=== PATIENT | female | born 1950 | race Caucasian/White ===

== ENCOUNTER 2018-05-23 11:27 | Inpatient (IN) ==
[2018-05-23 12:24] LABS: URINE SOURCE CLEAN CATCH
[2018-05-23 12:35] LABS: BASO# 0.01 X1000 (0.0-0.2); BASO% 0.2 % (0.0-0.8); EOS# 0.02 X1000 (0.0-0.7); EOS% 0.3 % (0.0-10.0); HEMATOCRIT 46.1 % (37.0-47.0); HEMOGLOBIN 14.1 g/dL (12.0-16.0); LYMPH# 0.92 X1000 (1.2-3.4); LYMPH% 14.4 % (20.5-51.1); MCH 26.9 PG (27-31); MCHC 30.6 g/dL (33-37); MCV 87.8 FL (81-99); MONO# 0.71 X1000 (0.11-0.59); MONO% 11.1 % (1.7-9.3); MPV 11.7 FL (7.4-10.4); NEUT# 4.75 X1000 (1.4-6.5); PLT 126 X1000 (130-400); RBC 5.25 XMIL (4.2-5.4); RDW 14.7 % (11.5-14.5); WBC 6.41 X1000 (4.8-10.8)
[2018-05-23 12:35] LABS: BILIRUBIN URINE SMALL (NEGATIVE); BLOOD URINE TRACE (NEGATIVE); COLOR YELLOW; GLUCOSE URINE NEGATIVE (NEGATIVE); KETONE URINE NEGATIVE (NEGATIVE); LEUKOCYTES URINE SMALL (NEGATIVE); NITRITE URINE NEGATIVE (NEGATIVE); PH URINE 6.5; PROTEIN URINE 70 mg/dL (NEGATIVE); SP GRAVITY URINE 1.025; TURBIDITY URINE CLEAR (CLEAR); UROBILINOGEN URINE 8 mg/dL (NORMAL)
[2018-05-23 12:37] LABS: UR EPITHELIAL CELLS <10 /HPF (<10); URINE BACTERIA 1+ /HPF; URINE RBC <10 /HPF (<10); URINE WBC <10 /HPF (<10)
[2018-05-23 12:39] LABS: INR 0.88; PROTIME 12.6 Seconds (11.0-16.0)
[2018-05-23 12:40] LABS: PTT 30.6 Seconds (22.3-41.8)
--- NOTE | 2018-05-23 12:43 | Diag Imaging Result Doc PS360 ---
EXAM: CHEST-PORTABLE INDICATION: weakness TECHNIQUE: One view COMPARISON: None. FINDINGS: There is mild interstitial thickening bilaterally, which could be chronic related to mild fibrotic change. Otherwise, the lungs are grossly clear. There is no discrete pleural fluid collection or pneumothorax. The cardiomediastinal silhouette and central vasculature are grossly unremarkable. IMPRESSION: Very mild interstitial thickening as described. Electronically signed by Titus Sandoval 05/23/2018 12:41 PM
[2018-05-23 13:14] LABS: ALB/GLOB RATIO 0.8; ALBUMIN 3.5 g/dL (3.5-5.0); CALCIUM 9.2 mg/dL (8.8-10.2); MAGNESIUM 2.1 mg/dL (1.5-2.7); TOTAL BILIRUBIN 0.86 mg/dL (0.20-1.00)
[2018-05-23] MEDS ORDERED: NS 1,000 ML IV ONE (13:33)
[2018-05-23 13:44] LABS: CK INDEX 0.2 (0.0-2.5); CK-MB 4.36 ng/mL (0.0-5.0)
--- NOTE | 2018-05-23 15:02 | Diag Imaging Result Doc PS360 ---
EXAM: CT ABD/PELVIS W/IV CONT ONLY INDICATION: abdominal pain TECHNIQUE: This exam was performed using automated exposure control, adjustment of mA or kV according to patient size, and/or use of iterative reconstruction technique. COMPARISON: None. FINDINGS: There is mild subsegmental atelectasis at the lung bases. The liver, gallbladder, spleen, pancreas, and adrenal glands are essentially unremarkable. The kidneys and urinary bladder are unremarkable. There is a 2.7 cm left ovarian cyst. There is a 1.3 cm right ovarian cyst. The appendix is normal. There is advanced sigmoid colonic diverticulosis but no evidence of diverticulitis. The remainder of the GI tract is grossly unremarkable. There are multiple compression deformities involving the lower thoracic and the lumbar spine that are probably chronic. There has been prior vertebroplasty at T12. IMPRESSION: 1.Advanced diverticulosis coli but no evidence of diverticulitis. 2.Bilateral ovarian cysts with the largest cyst on the left measuring up to 2.7 cm. 3.Other external/nonacute findings detailed above. Electronically signed by Titus Sandoval 05/23/2018 3:00 PM
--- NOTE | 2018-05-23 15:56 | PROVIDER DOCUMENTATION ---
This chart was entered by Leonila Cee Scribe, acting as scribe for Shukri Lomas MD. HPI-General Adult - General Chief Complaint: Weakness Stated Complaint: WEAKNESS Time Seen by Provider: 05/23/18 11:51 Source: patient, family - History of Present Illness -Gen Adult Nature of Presenting Problems: 67 yof presents to the e with family at bedside and family sts has noticed pt has became weaker the last 4 days and are not handling her ADL's as well as before. pt on exam is ill appearing Location of Pain/Injury: reports: generalized (weakness) Quality of Pain: reports: aching Severity: reports: moderate Onset/Duration: reports: 4 days ago Timing: reports: still present, getting worse Context/Activities at Onset: reports: light activity Modifying Factors: improves with: nothing Associated Symptoms: reports: fatigue, malaise, weakness, trouble walking. denies: chest pain, cough, diarrhea, fever/chills, nausea, vomiting Similar Symptoms Previously?: No Recently seen or treated by another doctor?: No Review of Systems - Adult - REVIEW OF SYSTEMS - ADULT Constitutional: reports: fatique. denies: chills, fever Eyes: reports: no symptoms reported Ears, Nose, Mouth & Throat: reports: no symptoms reported Cardiovascular: denies: chest pain, palpitations Respiratory: denies: shortness of breath, wheezing Gastrointestinal: reports: poor appetite. denies: abdominal pain, diarrhea, nausea, vomiting Genitourinary: reports: no symptoms reported Musculoskeletal: reports: muscle weakness. denies: back pain, neck pain Integumentary: reports: no symptoms reported Neurological: reports: tremors. denies: ataxia, dizziness/vertigo, headache/ migraines, seizure, slurred speech, syncope Psychiatric: reports: no symptoms reported Endocrine: reports: no symptoms reported Hematologic/Lymphatic: reports: no symptoms reported Allergic/Immunologic: reports: no symptoms reported All Other Systems: Reviewed and Negative Past History - Adult - PAST MEDICAL HISTORY-ADULT Review of Records: reports: Old Records Reviewed, Nursing Assessment Review, Medications Reviewed, Social history reviewed & non-contributory. Major Childhood Illnesses: reports: denies history Cardiovascular: reports: HTN, hyperlipidemia Respiratory: reports: COPD Gastrointestinal: reports: denies history Obstetrical/Gynecological: reports: denies history Genitourinary: reports: denies history Musculoskeletal: reports: denies history Neurological: reports: denies history Psychiatric: reports: denies history Endocrine/Immune: reports: thyroid disorder Other Conditions: reports: denies history - PRIOR SURGERIES/PROCEDURES Surgical/Procedure History: reports: back/neck - IMMUNIZATION STATUS Childhood Immunizations: See Nurse Assessment Flu Vaccine: See Nurse Assessment - FAMILY HISTORY Family History: reviewed, not pertinent - SOCIAL HISTORY Smoking: cigarettes, less than 1 pack/day Provider spent 3-5 mins advising pt. on dangers of tobacco.: Discussed manners to quit use, and f/u contacts for add'l counseling. Substance Use: denies Alcohol Use Frequency: never Living Situation: family Physical Exam-General - PHYSICAL EXAM-ADULT Initial Vital Signs Reviewed: Yes - CONSTITUTIONAL General Appearance: moderate distress, thin, other (she looks chronically ill). negative: appears well - EYES Eyes: PERRL/EOMI - HEAD, EARS, NOSE, MOUTH & THROAT HENMT: moist mucous membranes - NECK Neck: non-tender, full range of motion, supple, normal inspection - RESPIRATORY Respiratory: chest non-tender, decreased breath sounds. negative: crackles, rales, rhonchi - CARDIOVASCULAR Cardiovascular: normal peripheral pulses, tachycardia (130) - GASTROINTESTINAL (ABDOMEN) Abdominal Exam: normal bowel sounds, soft, tenderness (generalized). negative: distended, guarding, rigid, rebound - LYMPHATIC Lymphatic: no adenopathy - MUSCULOSKELETAL Back Exam: normal inspection, no CVA tenderness, no vertebral tenderness Extremity: normal range of motion, no pedal edema, no calf tenderness, normal capillary refill, pelvis stable. negative: normal gait - SKIN Integumentary: normal color, normal turgor, warm/dry - NEUROLOGIC Neurologic: grossly normal, no motor/sensory deficits, other (intention tremors in left upper extremity) - PSYCHIATRIC Psych/Mental Status: oriented x 3 Progress - PLAN OF CARE/RESULTS Progress/Plan/Lab Results: Vital Signs - 8 hr 05/23/18 11:29 Temperature 98.3 F Pulse Rate 130 H Respiratory Rate 20 Blood Pressure 103/76 O2 Sat by Pulse Oximetry 91 L Orders Category Date Time Status CHEST-PORTABLE [RAD] Stat Exams 05/23/18 12:06 Ordered CBC WITH ELECTRONIC DIFF [HEME] Stat Lab 05/23/18 12:06 Uncollected CK PROFILE [SP CHEM] Stat Lab 05/23/18 12:06 Uncollected COMPREHENSIVE METABOLIC PANEL [CHEM] Stat Lab 05/23/18 12:06 Uncollected MAGNESIUM [CHEM] Stat Lab 05/23/18 12:06 Uncollected PRO B-NATRIURETIC PEPTIDE Stat Lab 05/23/18 12:06 Uncollected PT [PROTIME WITH INR] [COAG] Stat Lab 05/23/18 12:06 Uncollected PTT [COAG] Stat Lab 05/23/18 12:06 Uncollected TROPONIN T Stat Lab 05/23/18 12:06 Uncollected URINALYSIS W/POSS RFLX CULT [URINALYSIS] Stat Lab 05/23/18 12:06 Uncollected EKG [EKG] Stat Ther 05/23/18 12:05 Ordered Result Diagrams: 05/23/18 11:50 05/23/18 11:50 - REASSESSMENT Reassessment #1 Time Reassessed: 13:20 Status: improving Reassessment Comment: pt is resting in bed - EKG 1 Time of EKG reading by physician:: 11:44 EKG Read and Signed by:: Jonathan Barajas EKG Interpretation (*Must complete 3 of following elements*): Abnormal Rate: 123 Rhythm: sinus [place]: normal QRS: other (low voltage QRS) ID Interval: normal ST Wave: normal Comments: possible inferior infarct, age undetermined - XRAY 1 XRAY: Bilateral XRAY Study: Chest (EXAM: CHEST-PORTABLE INDICATION: weakness TECHNIQUE: One view COMPARISON: None. FINDINGS: There is mild interstitial thickening bilaterally, which could be chronic related to mild fibrotic change. Otherwise, the lungs are grossly clear. There is no discrete pleural fluid collection or pneumothorax. The cardiomediastinal silhouette and central vasculature are grossly unremarkable. IMPRESSION: Very mild interstitial thickening as described. Electronically signed by Titus Sandoval 05/23/2018 12:41 PM 1241 Interpreting Physician: Titus Sandoval MD Dictated Date/Time: 06/10 1238 cc: Shukri Lomas MD; Arya Simpson MD) - CT/MRI 1 CT Study: Abdomen, Pelvis Impression: Abnormal ( EXAM: CT ABD/PELVIS W/IV CONT ONLY INDICATION: abdominal pain TECHNIQUE: This exam was performed using automated exposure control, adjustment of mA or kV according to patient size, and/or use of iterative reconstruction technique. COMPARISON: None. FINDINGS: There is mild subsegmental atelectasis at the lung bases. The liver, gallbladder, spleen , pancreas, and adrenal glands are essentially unremarkable. The kidneys and urinary bladder are unremarkable. There is a 2.7 cm left ovarian cyst. There is a 1.3 cm right ovarian cyst. The appendix is normal. There is advanced sigmoid colonic diverticulosis but no evidence of diverticulitis. The remainder of the GI tract is grossly unremarkable. There are multiple compression deformities involving the lower thoracic and the lumbar spine that are probably chronic. There has been prior vertebroplasty at T12. IMPRESSION: 1.Advanced diverticulosis coli but no evidence of diverticulitis. 2.Bilateral ovarian cysts with the largest cyst on the left measuring up to 2.7 cm. 3.Other external /nonacute findings detailed above. Electronically signed by Titus Sandoval 2018 3:00 PM 05/23/18 1500 Interpreting Physician: Titus Sandoval MD Dictated Date/Time: 05/23/18 4198) - CONSULTS/PCP/HOSPITALIST Notification #1 *Consult/PCP/Hospitalist*: Dr. Wright/GLENN Melo Time Discussed: 15:54 Consult Disposition: Admit Departure - Departure Date of Disposition Decision: 05/23/18 Time of Disposition Decision: 15:55 DIAGNOSIS: Tobacco use disorder, Weakness Ovarian cyst Qualifiers: Laterality: bilateral Qualified Code(s): N83.201 - Unspecified ovarian cyst, right side; N83.202 - Unspecified ovarian cyst, left side Rhabdomyolysis Qualifiers: Rhabdomyolysis type: non-traumatic Qualified Code(s): M62.82 - Rhabdomyolysis Disposition: ADMITTED INPATIENT 09 Certified Medical Emergency: Emergent Condition: Fair Referrals and Follow-Ups: Arya Simpson MD [Primary Care Provider] - - Critical Care Note This patient required my direct & personal management of CC.: No Attestation - Physician/ TALITA Attestation Patient care was provided by Advanced Practice Provider:: No The physician spent face to face time with patient:: Yes Advanced Practice Provider documentation review:: Supervising physician onsite and consulted in the evaluation and care of this patient. The physician did have a face to face encounter with the patient. This chart was documented by the indicated scribe, (Leonila Cee Scribe) and accurately reflects the services I performed and decisions made by me, Shukri Lomas MD, as attested by the provider's signature.
[2018-05-23] MEDS ORDERED: DUONEB (A & A) INH PRN (17:34)
--- NOTE | 2018-05-23 18:33 | HISTORY AND PHYSICAL ---
ADDENDUM: I agree with components of history, physical, assessment and plan. In brief Ms. Washington is 67-year-old lady with past history of tobacco abuse, essential tremor, hyperlipidemia, hypothyroidism who comes in with 3-day history of physical deconditioning, decreased p.o. intake, inability to come out of bed. On arrival she is found to be tachycardic with volume depletion, kidney dysfunction, transaminitis and suspected rhabdomyolysis. I saw the patient in the emergency room. She denies any complaints. She does have bilateral upper extremity tremors at rest. Vitals examination reveals tachycardia normotension. Physical examination she had bilateral wheezing and no lower extremity edema. Labs as mentioned above had kidney dysfunction and transaminase. ASSESSMENT AND PLAN: Likely physical deconditioning due to what appears to me chronic debility as given at baseline she uses walker to walk inside the house has bilateral essential tremor and rigidity on muscular exam. We will admit her for intravenous fluid resuscitation and evaluation of transaminitis. I will get repeat EKG tomorrow morning, will get CT head to rule out any acute cerebrovascular accident. Plan of care was discussed with patient and granddaughter at bedside who is a surrogate decision maker, apparently patient has not been in contact with any of her children. cc: Zack Wright MD MTDD
--- NOTE | 2018-05-23 18:44 | Diag Imaging Result Doc PS360 ---
EXAM: CT HEAD W/O CONTRAST INDICATION: ams TECHNIQUE: This exam was performed using automated exposure control, adjustment of mA or kV according to patient size, and/or use of iterative reconstruction technique. COMPARISON: None. FINDINGS: There is patchy low attenuation in the periventricular and subcortical white matter suggesting moderate to advanced microangiopathy. There is no definite acute infarct given the limited sensitivity of CT versus MRI. There is no discrete intracranial mass, mass effect, or intracranial hemorrhage. The surrounding soft tissues and bony structures are essentially unremarkable. IMPRESSION: Chronic appearing white matter changes as described. No definite acute intracranial pathology. Electronically signed by Titus Sandoval 05/23/2018 6:41 PM
[2018-05-23 18:55] LABS: UR AMPHETAMINES QUAL NONE DETECTED (NONE DETECT); UR BARBITUATES QUAL PRESUMPTIVE POSITIVE (NONE DETECT); UR BENZODIAZEPIN QUAL PRESUMPTIVE POSITIVE (NONE DETECT); UR CANNABINOIDS QUAL NONE DETECTED (NONE DETECT); UR COCAINE QUAL NONE DETECTED (NONE DETECT); UR METHADONE QUAL NONE DETECTED (NONE DETECT); UR OPIATES QUAL PRESUMPTIVE POSITIVE (NONE DETECT); UR OXYCODONE QUAL NONE DETECTED (NONE DETECT); UR PCP QUAL NONE DETECTED (NONE DETECT)
--- NOTE | 2018-05-23 19:04 | HISTORY AND PHYSICAL ---
PRIMARY CARE PHYSICIAN: Dr. Arya Simpson. CHIEF COMPLAINT: Weakness. HISTORY OF PRESENT ILLNESS: Mrs. Washington is a 67-year-old female with a history of COPD, nicotine dependence, chronic pain, anxiety, tremor, hyperlipidemia, and hypothyroidism who presents with abrupt onset of weakness. The patient is a poor history. Granddaughter and her boyfriend at the bedside are able to answer some questions. Some time on Tuesday, Mrs. Washington apparently slipped out of her bed onto the floor and was there for quite some time before she was found by her family and since that time she has been progressively weak, not getting up to walk, eat, or drink. There has not been any fever or cough with sputum production. No nausea or vomiting. However, she has been unable to really ambulate since Tuesday. She was brought here today for evaluation. In the ER she had labs done. Her chemistry was noted to show rhabdomyolysis with a CK of 2282 as well as transaminitis. Chest x-ray shows mild interstitial thickening. The abdomen and pelvis CT shows advanced diverticulosis, but no evidence of diverticulitis. The patient, herself, denies any real complaints, but she is clearly weak, somewhat lethargic, and confused. There are, however, no focal deficits noted. As such, she is going to be admitted for weakness, encephalopathy, transaminitis, as well as rhabdomyolysis. PAST MEDICAL HISTORY: 1. COPD. 2. Nicotine dependence. 3. Anxiety and depression. 4. Tremor. 5. Hypothyroidism. 6. Hyperlipidemia. 7. Chronic pain. PAST SURGICAL HISTORY: Kyphoplasty and carpal tunnel release on the right. SOCIAL HISTORY: She smokes three to five cigarettes a day. She is . She lives with her granddaughter occasionally, but most of the time lives alone. No drug use or alcohol use. REVIEW OF SYSTEMS: A limited 10-point review of systems was obtained and found to be negative with the exception of the HPI. HOME MEDICATIONS: Lipitor 20 mg daily, diazepam 5 mg b.i.d., Neurontin 300 mg p.o. daily, [place] b.i.d., Synthroid 100 mcg daily, Prednisone 5 mg b.i.d., primidone 100 mg b.i.d., sertraline 50 mg daily. ALLERGIES: No known drug allergies. PHYSICAL EXAMINATION: VITAL SIGNS: Blood pressure is 105/68, heart rate is 71, respiratory rate 10, O2 saturation is 98% on room air, temperature is 98.3. GENERAL: Chronically ill and disheveled 67-year-old female, lying in the hospital bed in no acute distress. NEUROLOGICAL: Clearly lethargic and confused but she does follow commands without focal deficits. HEENT: Head is atraumatic and normocephalic. Pupils are equal, round and reactive to light. Oral mucosa is dry. NECK: Trachea is midline. There is no JVD. CHEST: Diminished at the bases. Clear to auscultation bilaterally. CARDIOVASCULAR: Regular rate and rhythm. S1 and S2 is noted. No murmurs. GASTROINTESTINAL: Soft. Nondistended. Nontender. Bowel sounds are hypoactive. EXTREMITIES: Without edema. Pulses 1+ bilaterally. DIAGNOSTIC DATA: Chest x-ray shows mild interstitial thickening. Abdomen and pelvis CT shows extensive diverticulosis, no diverticulitis. Thoracic and lumbar spine shows chronic changes with kyphoplasty changes, but nothing acute. WBC is 6.41, hemoglobin 14.1, hematocrit 46.1, platelet count 126. INR 0.88. Sodium 138, potassium 4, chloride 97, CO2 27, anion gap 14, BUN 21, creatinine 1, glucose 153, calcium 9.2, magnesium 2.1. Total bilirubin 0.86, AST 170, ALT 120, alkaline phosphatase 151. CK 2282. Troponin 0.018. proBNP 780. Albumin 3.5. TSH 0.05. T4 1.69. UA shows 1+ bacteria, small leukocytes and urobilinogen. ASSESSMENT AND PLAN: 1. Toxic metabolic encephalopathy: Unclear as to the baseline of the patient. It would seem that there are chronic cognitive issues, however we need to rule out anything acute. Will check a head CT, ammonia level, and B12 with folate. Drug screen, alcohol level, and acetaminophen level. Will also culture her urine, although she denies any dysuria. 2. Rhabdomyolysis: Likely multifactorial, to include dehydration and being on the ground for some time on Tuesday. Will continue to trend her CKs and hydrate. 3. Transaminitis: Unclear as to the etiology. Will stop the Lipitor. Check a hepatitis, alcohol, and acetaminophen level, as well as ammonia level as she is somewhat confused. 4. Volume depletion: Continue intravenous fluids. 5. Chronic obstructive pulmonary disease: She is not in exacerbation. Will add breathing treatments and pulmonary toilet. 6. Hypothyroidism: Continue her Synthroid. 7. Chronic pain: Will continue her [place], being cautious with her mental status. 8. Nicotine dependence: We have advised the patient to quit smoking. Will write a nicotine patch. 9. Deep venous thrombosis prophylaxis with sequential compression devices. Further recommendations to follow. Dictated by ZAY Guillaume for Zack Wright MD cc: ZAY Guillaume MD
[2018-05-23 19:48] LABS: ACETAMINOPHEN < 1.2 ug/mL (10-30); PREALBUMIN 10.7 mg/dL (20-40)
[2018-05-23] MEDS: NS 1,000 ML IV ONE ×2 (20:01→20:35)
[2018-05-23 20:03] LABS: CK INDEX 0.3 (0.0-2.5); CK-MB 4.68 ng/mL (0.0-5.0)
[2018-05-23 20:04] LABS: TSH 0.04 uIUmL (0.27-4.20)
[2018-05-23] MEDS: VALIUM PO SCH (20:35)
[2018-05-23] MEDS: NICODERM PATCH TD SCH (20:35)
[2018-05-24 01:23] LABS: CK INDEX 0.4 (0.0-2.5); CK-MB 4.67 ng/mL (0.0-5.0)
[2018-05-24] MEDS ORDERED: PNEUMOVAX 23 IM ONE (06:02)
[2018-05-24 06:17] LABS: BASO# 0.01 X1000 (0.0-0.2); BASO% 0.2 % (0.0-0.8); EOS# 0.16 X1000 (0.0-0.7); EOS% 2.9 % (0.0-10.0); HEMATOCRIT 39.3 % (37.0-47.0); HEMOGLOBIN 12.1 g/dL (12.0-16.0); LYMPH% 19.9 % (20.5-51.1); MCH 27.6 PG (27-31); MCHC 30.8 g/dL (33-37); MCV 89.5 FL (81-99); MONO# 0.99 X1000 (0.11-0.59); MONO% 17.9 % (1.7-9.3); MPV 12.1 FL (7.4-10.4); NEUT# 3.27 X1000 (1.4-6.5); NEUT% 59.1 % (42.2-75.2); PLT 119 X1000 (130-400); RBC 4.39 XMIL (4.2-5.4); RDW 14.7 % (11.5-14.5); WBC 5.53 X1000 (4.8-10.8)
[2018-05-24] MEDS: SYNTHROID PO SCH (06:17)
--- NOTE | 2018-05-24 07:12 | EKG Report ---
Test Performed on : 05/23/2018 11:43:46 AM Test Reason : weakness Blood Pressure : / mmHG Vent. Rate : 125 BPM Atrial Rate : 125 BPM P-R Int : 132 ms QRS Dur : 074 ms QT Int : 306 ms P-R-T Axes : 078 -09 069 degrees QTc Int : 441 ms Sinus tachycardia. with premature supraventricular complexes. Low voltage QRS Borderline ECG No previous ECGs available Unconfirmed Result
[2018-05-24 07:19] LABS: CK INDEX 0.5 (0.0-2.5); CK-MB 4.84 ng/mL (0.0-5.0)
--- NOTE | 2018-05-24 07:51 | EKG Report ---
Test Performed on : 05/24/2018 06:58:30 AM Test Reason : Follow up EKG Blood Pressure : / mmHG Vent. Rate : 108 BPM Atrial Rate : 108 BPM P-R Int : 138 ms QRS Dur : 072 ms QT Int : 310 ms P-R-T Axes : 058 001 055 degrees QTc Int : 415 ms Sinus tachycardia. with occasional premature ventricular complexes. Low voltage QRS Borderline ECG When compared with ECG of 23-MAY-2018 11:44, (Unconfirmed) Previous ECG has undetermined rhythm, needs review Moderate movement artifact present Confirmed by Rosy MANTILLA, Alberto Aburto ([id number]) on 05/24/2018 5:28:50 PM
[2018-05-24] MEDS: ZOLOFT PO SCH (08:38)
[2018-05-24] MEDS: VALIUM PO SCH ×3 (08:38→22:08)
[2018-05-24] MEDS: NICODERM PATCH TD SCH (08:38)
[2018-05-24 11:32] LABS: HEPATITIS PROFILE ACUTE SEE COMMENTS
[2018-05-24 14:29] LABS: AGAP 15; ALB/GLOB RATIO 0.9; ALKALINE PHOSPHATASE 121 U/L (32-104); BUN 15 mg/dL (8-22); CALCIUM 8.2 mg/dL (8.8-10.2); CHLORIDE 100 mmol/L (98-107); COSMO 278; CREATININE 0.6 mg/dL (0.5-0.9); ESTIMATED GFR > 60; GLUCOSE 85 mg/dL (70-104); GOT 120 U/L (10-30); GPT 94 U/L (10-36); POTASSIUM 3.6 mmol/L (3.5-5.1); SODIUM 139 mmol/L (136-145); TCO2 24 mmol/L (25-35); TOTAL PROTEIN 6.2 g/dL (6.3-8.3)
[2018-05-24] MEDS ORDERED: MELATONIN PO ONE (22:09)
[2018-05-24] MEDS: MYSOLINE PO SCH (22:35)
--- NOTE | 2018-05-25 00:28 | PROGRESS NOTE ---
DATE: 05/24/2018 Overnight, no acute events. SUBJECTIVE: She is feeling better today. She is denying any complaints at the moment. The patient's family friends at bedside, and plan of care has been discussed with them. The patient states she ate a little bit today. PHYSICAL EXAMINATION: Vital signs: She has been afebrile with temperature of 98.5 degrees, pulse 100 per minute, blood pressure 114/74, saturating 97% on nasal cannula. General: Does not appear in acute distress. Lungs: Air entry bilaterally equal. No wheeze, rhonchi, or crackles. Cardiovascular: S1, S2 normal. No murmur, rub, or gallop. Abdomen: Soft, nontender. Extremities: No lower extremity edema. Neurologic: Alert, oriented x3. Pupils equal, reactive to light bilaterally. No obvious facial droop. She is able to raise all upper extremities above ground level. LABORATORIES: Labs are suggestive of no leukocytosis, stable hemoglobin, hematocrit, and platelet count. Normal BMP. Improving transaminitis and improving creatine kinase. MICROBIOLOGY: Urine culture: No growth to date. However, the patient was not symptomatic, either. CT scan head did not detect an acute pathology. ASSESSMENT AND PLAN: 1. Toxic metabolic encephalopathy, likely because of volume depletion on arrival which has resolved, and the patient is currently at her baseline. A drug screen done did detect that she was positive for benzodiazepines and barbiturates. At home, she is listed to be taking diazepam and primidone which will give those results, respectively. 2. Rhabdomyolysis, likely related to her being bed-bound for more than 36 hours almost and decreasing physical activity, now improving after intravenous fluid resuscitation. CK is trending down. 3. Transaminitis, likely in the setting of rhabdomyolysis. I am holding her statin at the moment. The acetaminophen levels were unremarkable. Follow up liver function tests tomorrow. 4. Volume depletion, status post intravenous fluids. Continue to encourage p.o. intake. 5. History of chronic obstructive pulmonary disease, not in acute exacerbation. Continue albuterol-ipratropium as needed. 6. Hypothyroidism. Continue Synthroid. 7. Chronic pain. Continue p.r.n. [place] and stool softeners. 8. Nicotine dependence. The patient was advised to quit smoking and continue nicotine patch. 9. Deep venous thrombosis prophylaxis. Sequential compression devices. 10. History of anxiety and insomnia. Continue home diazepam to avoid withdrawal and sertraline. 11. Bilateral tremors. The patient has had family history of bilateral tremors. She is taking primidone. This could be secondary to essential tremors involving bilateral upper extremities as well as head. I will continue primidone. DISPOSITION: The patient remains inside the hospital. We will have Physical Therapy evaluate her. The patient's home situation is that she lives by herself. The only relative that she has currently is her granddaughter, who has moved out with her boyfriend, and the granddaughter is a surrogate decision maker. She appears very concerned about the patient's care, and on my evaluation, it appears that even if the patient goes to the rehab, considering her history of essential tremor and general decline, she may not be able to manage herself at home, so I have placed Social Work consult for long-term care facility placement, if possible. cc: Zack Wright MD
[2018-05-25] MEDS ORDERED: HALDOL IM ONE (06:27)
[2018-05-25] MEDS: SYNTHROID PO SCH (07:52)
[2018-05-25] MEDS: MYSOLINE PO SCH ×2 (08:26→23:38)
[2018-05-25] MEDS: ZOLOFT PO SCH (08:27)
[2018-05-25] MEDS: VALIUM PO SCH ×2 (08:27→23:38)
[2018-05-25] MEDS: NICODERM PATCH TD SCH (08:27)
[2018-05-25 12:16] LABS: AGAP 12; BUN 10 mg/dL (8-22); CALCIUM 8.7 mg/dL (8.8-10.2); CHLORIDE 101 mmol/L (98-107); CK TOTAL 378 U/L (24-173); COSMO 277; CREATININE 0.5 mg/dL (0.5-0.9); ESTIMATED GFR > 60; GLUCOSE 81 mg/dL (70-104); POTASSIUM 3.5 mmol/L (3.5-5.1); SODIUM 140 mmol/L (136-145); TCO2 27 mmol/L (25-35)
--- NOTE | 2018-05-25 16:08 | PROGRESS NOTE ---
DATE: 05/25/2018 INTERVAL HISTORY: Patient currently in restraints for agitation overnight. This morning appears to be mildly confused, but largely cooperative and able to converse easily. She talked primarily about how she wants to get out of the restraints. No other new complaints. No other acute events overnight. REVIEW OF SYSTEMS: Twelve-point systems negative except as per interval history. LABORATORY DATA: CK 378. Calcium 8.7. BMP otherwise unremarkable. OBJECTIVE: Vital Signs: T-max 99.6, pulse 95, respirations 20, blood pressure 103/65, O2 saturation 95% on room air. General: No acute distress. Vitals as above. HEENT: Normocephalic, atraumatic. Moist mucous membranes. No cervical adenopathy. Cardiovascular: Regular rate and rhythm. No murmurs, rubs, or gallops. Pulmonary: Minimally decreased air entry throughout, but essentially clear to auscultation bilaterally. Abdomen: Soft, nontender, nondistended. Bowel sounds positive. Extremities: Peripheral pulses decreased, but intact. No clubbing or cyanosis. Patient in soft restraints on the upper extremities. Neurologic: Cranial nerves 2-12 grossly intact. No focal motor or sensory deficits. Psychiatric: Slightly anxious- appearing, but essentially normal mood and affect. Awake, alert. Oriented to person, but not place or time. Skin: No new rashes or lesions noted. ASSESSMENT AND PLAN: 1. Encephalopathy, likely metabolic: Etiology not entirely certain. Urinalysis without evidence of urinary tract infection. Chest x-ray with no clear evidence of infection and CT abdomen and pelvis with no acute process. Head CT also largely unremarkable aside from chronic white matter changes. Remains mildly confused, but much improved from previous. Patient on benzodiazepines, barbiturates and opiates at home, which may have contributed. Also appeared to be dehydrated on admission, which may have been a strong contributor. May be approaching baseline at this point. 2. Rhabdomyolysis, likely related to being down for over day. CK trending down well with intravenous fluids. Continue intravenous hydration. 3. Transaminitis, likely related to above mild rhabdomyolysis. Trending down with hydration. Bilirubin was never elevated and hepatitis panel is negative. 4. Dehydration, improving with intravenous fluids as above. Continue intravenous fluids. 5. Chronic obstructive pulmonary disease. No sign of acute exacerbation. Continue nebulizers as needed. 6. Hypothyroidism. Continue home Synthroid. TSH quite low, but free T4 normal. 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 7. Chronic pain. Continue Bieber as needed. 8. Nicotine use. Continue patch. 9. Essential tremor, minimal at this point. Monitor. 10. Deep vein thrombosis prophylaxis. Sequential compression devices. DISPOSITION: Patient appears to be fairly cooperative at this point. Will remove restraints and have Physical Therapy assess her. Will likely discharge to rehab given concerns about home situation and patient's ability to take care of herself.
[2018-05-25] MEDS: TYLENOL PO PRN (17:32)
[2018-05-26] MEDS: SYNTHROID PO SCH ×2 (05:57→06:20)
[2018-05-26 06:12] LABS: BASO# 0.02 X1000 (0.0-0.2); BASO% 0.4 % (0.0-0.8); EOS# 0.34 X1000 (0.0-0.7); EOS% 6.5 % (0.0-10.0); HEMATOCRIT 38.6 % (37.0-47.0); HEMOGLOBIN 11.9 g/dL (12.0-16.0); IMM GRAN# 0.02 X1000 (0.0-0.04); IMM GRAN% 0.4 % (0.0-0.5); LYMPH# 1.44 X1000 (1.2-3.4); LYMPH% 27.5 % (20.5-51.1); MCH 27.5 PG (27-31); MCHC 30.8 g/dL (33-37); MCV 89.4 FL (81-99); MONO# 0.75 X1000 (0.11-0.59); MONO% 14.3 % (1.7-9.3); MPV 11.7 FL (7.4-10.4); NEUT# 2.67 X1000 (1.4-6.5); NEUT% 50.9 % (42.2-75.2); PLT 159 X1000 (130-400); RBC 4.32 XMIL (4.2-5.4); RDW 14.6 % (11.5-14.5); WBC 5.24 X1000 (4.8-10.8)
[2018-05-26 06:52] LABS: AGAP 13; ALB/GLOB RATIO 0.9; ALBUMIN 2.8 g/dL (3.5-5.0); ALKALINE PHOSPHATASE 126 U/L (32-104); BUN 7 mg/dL (8-22); CALCIUM 8.8 mg/dL (8.8-10.2); CHLORIDE 102 mmol/L (98-107); COSMO 281; CREATININE 0.4 mg/dL (0.5-0.9); ESTIMATED GFR > 60; GLUCOSE 90 mg/dL (70-104); GOT 69 U/L (10-30); GPT 70 U/L (10-36); MAGNESIUM 1.7 mg/dL (1.5-2.7); POTASSIUM 3.5 mmol/L (3.5-5.1); SODIUM 142 mmol/L (136-145); TCO2 27 mmol/L (25-35); TOTAL PROTEIN 5.8 g/dL (6.3-8.3)
[2018-05-26] MEDS: ZOLOFT PO SCH (09:06)
[2018-05-26] MEDS: VALIUM PO SCH ×2 (09:06→20:14)
[2018-05-26] MEDS: MYSOLINE PO SCH ×2 (09:06→20:14)
[2018-05-26] MEDS: NICODERM PATCH TD SCH (09:07)
--- NOTE | 2018-05-26 14:50 | PROGRESS NOTE ---
DATE: 05/26/2018 INTERVAL HISTORY: The patient's mental status improved. No further agitation. Has remained out of restraints. Largely cooperative and able to converse easily. No new complaints. No acute events overnight. REVIEW OF SYSTEMS: A twelve-point review of systems negative, except as per Interval History. LABS: CBC unremarkable. Comprehensive metabolic panel with AST 69, ALT 70, alkaline phosphatase 126, albumin 2.8, total protein 5.8, creatinine 0.4, otherwise unremarkable. OBJECTIVE: Vitals: T-max 98.8, pulse 95, respirations 14, blood pressure 110/83, O2 saturations 95% on 2 L by nasal cannula. General: On physical examination, no acute distress. HEENT: Normocephalic, atraumatic. Moist mucous membranes. Neck: No cervical lymphadenopathy. Cardiovascular: Regular rate and rhythm. No murmurs, rubs or gallops. Pulmonary: Clear to auscultation bilaterally. No wheezing, rales, or rhonchi. Abdomen: Soft, nontender, nondistended. Bowel sounds positive. Extremities: Peripheral pulses decreased, but intact. No clubbing or cyanosis. Neurologic: Cranial nerves 2 through 12 grossly intact. Globally weak with no focal deficits. Psychiatric: Normal mood and affect. More awake today. Oriented to person and time, but not place, which is an improvement. Skin: No new rashes or lesions noted. ASSESSMENT AND PLAN: 1. Encephalopathy, likely metabolic: Etiology remains not entirely certain. Urinalysis without evidence of urinary tract infection. Chest x-ray with no clear evidence of infection. CT of the abdomen and pelvis: No acute process. Head CT also showing chronic white matter changes. Confusion improving slowly. It may be approaching baseline at this point. The patient on benzodiazepines, barbiturates and opiates at home which may have contributed. The patient also noted to be dehydrated on admission, which may have been contributing. 2. Rhabdomyolysis, likely related to being down for a day prior to admission. Creatinine kinase has been trending down, and patient beginning to work with physical therapy. Continue intravenous fluids for now, but the patient oral intake reasonable at this point, so can likely discontinue intravenous fluids in the near future. 3. Transaminitis, likely related to above mild rhabdomyolysis . It has trended down with hydration. Hepatitis panel negative. No need for further workup at this time. 4. Dehydration, improved with intravenous fluids as above. Continue intravenous fluids for now. 5. Chronic obstructive pulmonary disease. No sign of acute exacerbation. Continue nebulizers as needed. 6. Hypothyroidism. Thyroid stimulating hormone low, but free T4 normal and free T3 close to normal. Recommend repeat check as an outpatient, but no need to adjust Synthroid at this time. 7. Chronic pain. Continue Orma as needed. 8. Nicotine use. Continue nicotine patch. 9. Essential tremor, pretty mild at this point. Monitor. 10. Deep vein thrombosis prophylaxis. Sequential compression devices. 11. Disposition: The patient is comfortable, taking adequate oral. Confusion much improved. Awaiting physical therapy evaluation, but anticipate need for discharge to rehabilitation given global weakness and concerns about home situation. Hopeful for discharge to rehabilitation on Tuesday.
[2018-05-26] MEDS: TYLENOL PO PRN (17:21)
[2018-05-26] MEDS: ULTRAM PO PRN (20:14)
[2018-05-27] MEDS: ULTRAM PO PRN ×2 (04:30→14:38)
[2018-05-27] MEDS: SYNTHROID PO SCH (06:11)
[2018-05-27 06:33] LABS: AGAP 9; ALBUMIN 2.8 g/dL (3.5-5.0); ALKALINE PHOSPHATASE 118 U/L (32-104); BUN 8 mg/dL (8-22); CALCIUM 8.7 mg/dL (8.8-10.2); CHLORIDE 100 mmol/L (98-107); COSMO 276; CREATININE 0.6 mg/dL (0.5-0.9); ESTIMATED GFR > 60; GLUCOSE 107 mg/dL (70-104); GOT 50 U/L (10-30); GPT 60 U/L (10-36); POTASSIUM 3.7 mmol/L (3.5-5.1); SODIUM 139 mmol/L (136-145); TCO2 30 mmol/L (25-35); TOTAL BILIRUBIN 0.51 mg/dL (0.20-1.00); TOTAL PROTEIN 5.7 g/dL (6.3-8.3)
[2018-05-27] MEDS: MYSOLINE PO SCH ×2 (09:16→20:12)
[2018-05-27] MEDS: ZOLOFT PO SCH (09:16)
[2018-05-27] MEDS: VALIUM PO SCH ×2 (09:16→20:12)
[2018-05-27] MEDS: NICODERM PATCH TD SCH (09:16)
--- NOTE | 2018-05-27 16:48 | PROGRESS NOTE ---
DATE: 05/27/2018 SUBJECTIVE: This patient is alert and oriented x3 today. She seems to be more stable but she does have generalized weakness, also she has been complaining of some abdominal discomfort which is generalized but mostly at the level of the periumbilical area, no nausea, no vomiting though. Also she has been having some tremors at the level of the upper extremities which I believe is chronic. I had a conversation with the daughter by phone and they both want this patient to go to a rehab center, no new complaints, no events overnight. OBJECTIVE: Vital Signs: Temperature 98.5 degrees, pulse 96, respiratory rate 24, blood pressure 104/66, oxygen saturation 96 on 3 L of nasal cannula. HEENT: Head normocephalic. No trauma. PERRLA. Neck: Supple. No JVD. No masses. Central trachea. Chest: Clear to auscultation. No wheezing. No rales. Abdomen: Soft. Mild tenderness to palpation at the level of the periumbilical area. No signs of peritoneal irritation. Positive bowel sounds. Extremities: No edema, no clubbing, no cyanosis. Neurological: This patient is alert, she is oriented x3 today but she has been confused before. I do not see any focal deficits but generalized weakness. LABORATORY: Sodium 139, potassium 3.7, chloride 100, bicarbonate 30, BUN 8, creatinine 0.6, glucose 107, calcium 8.7, AST 50, ALT 60, alkaline phosphatase 118, albumin 2.8. ASSESSMENT AND PLAN: 1. Encephalopathy, likely metabolic. This patient was admitted with dehydration and rhabdomyolysis, there is no source of infection so far. Urine culture has been negative. No fever, no chills since admission. 2. Rhabdomyolysis, this is getting better, BUN and creatinine normal. I will ask for a new CK level which I believe should be lower or at least normal. Continue with oral intake of fluid. IV fluid has been already stopped. 3. Transaminitis likely related to her rhabdomyolysis. It has been getting better. Hepatitis panel is negative. I do not think we need to do more workup at this time. 4. Dehydration improved. 5. Chronic obstructive pulmonary disease not in exacerbation. 6. Hypothyroidism. Continue with Synthroid which I believe has not been adjusted, continue same management. TSH is a little bit low but normal T4 and T3 close to normal. TSH 0.04 and free T4 1.69. 7. Chronic pain, continue p.r.n. medication. 8. Nicotine use. Continue with nicotine patch. This patient has been highly advised against tobacco use. I will continue with daily cessation education. 9. Essential tremor mild, mostly upper extremities. 10. Deep vein thrombosis prophylaxis with sequential compression devices. 11. Generalized weakness and physical deconditioning. This patient should go to a rehab center, this has been discussed with the patient and the daughter. cc: Bear Reese MD
[2018-05-27] MEDS: TYLENOL PO PRN (20:12)
[2018-05-28 06:11] LABS: BASO# 0.02 X1000 (0.0-0.2); BASO% 0.3 % (0.0-0.8); EOS# 0.46 X1000 (0.0-0.7); EOS% 7.7 % (0.0-10.0); IMM GRAN# 0.03 X1000 (0.0-0.04); IMM GRAN% 0.5 % (0.0-0.5); LYMPH% 31.8 % (20.5-51.1); MCH 27.1 PG (27-31); MCV 90.5 FL (81-99); MONO% 10.1 % (1.7-9.3); MPV 10.9 FL (7.4-10.4); NEUT# 2.96 X1000 (1.4-6.5); NEUT% 49.6 % (42.2-75.2); PLT 234 X1000 (130-400); RBC 4.42 XMIL (4.2-5.4); RDW 14.5 % (11.5-14.5); WBC 5.97 X1000 (4.8-10.8)
[2018-05-28 06:20] LABS: AGAP 8; ALBUMIN 2.8 g/dL (3.5-5.0); ALKALINE PHOSPHATASE 124 U/L (32-104); BUN 10 mg/dL (8-22); CALCIUM 8.6 mg/dL (8.8-10.2); CHLORIDE 100 mmol/L (98-107); COSMO 276; CREATININE 0.5 mg/dL (0.5-0.9); ESTIMATED GFR > 60; GLUCOSE 94 mg/dL (70-104); GOT 39 U/L (10-30); GPT 50 U/L (10-36); MAGNESIUM 1.9 mg/dL (1.5-2.7); POTASSIUM 3.8 mmol/L (3.5-5.1); SODIUM 139 mmol/L (136-145); TCO2 31 mmol/L (25-35); TOTAL BILIRUBIN 0.61 mg/dL (0.20-1.00); TOTAL PROTEIN 5.7 g/dL (6.3-8.3)
[2018-05-28] MEDS: SYNTHROID PO SCH (06:39)
[2018-05-28] MEDS: VALIUM PO SCH ×2 (08:26→21:37)
[2018-05-28] MEDS: MYSOLINE PO SCH ×2 (08:27→21:31)
[2018-05-28] MEDS: ULTRAM PO PRN ×2 (08:27→21:31)
[2018-05-28] MEDS: NICODERM PATCH TD SCH (08:27)
[2018-05-28] MEDS: ZOLOFT PO SCH (08:27)
--- NOTE | 2018-05-28 11:41 | PROGRESS NOTE ---
DATE: 05/28/2018 SUBJECTIVE: This patient today is alert and oriented x3. She seems to be stable, but she does have generalized weakness. The plan is to send this patient to a rehab center. No acute events overnight. OBJECTIVE: Vital Signs: Temperature 98.4 degrees, pulse 95, respiratory rate 22, blood pressure 106/66, oxygen saturation 96 on 3 L of nasal cannula. HEENT: Head normocephalic. No trauma. PERRLA. Neck: Supple. No JVD. No masses. Central trachea. Chest: Decreased breath sounds at the bases with some crepitus. Abdomen: Soft, mild tenderness to palpation at the level of the periumbilical area. No signs of peritoneal irritation. Positive bowel sounds. Extremities: No edema. No clubbing. No cyanosis. Neurological: The patient is alert and oriented x3. It looks like she has been confused on and off, but not with me. I do not see any focal deficits, but generalized weakness. LABORATORY: WBC 5.9, hemoglobin 12, hematocrit 40, platelet count 234,000. Sodium 139, potassium 3.8, chloride 100, bicarbonate 31, BUN 10, creatinine 0.5, glucose 94, calcium 8.6, AST 39, ALT 50, alkaline phosphatase 124, CK level is 47. Albumin 2.8. ASSESSMENT AND PLAN: 1. Encephalopathy, likely metabolic, resolved. 2. Rhabdomyolysis. Resolved. BUN and creatinine normal. CK level is normal as well. 3. Transaminitis, likely related to dehydration. This is getting better. Hepatitis panel is negative. 4. Dehydration, resolved. 5. Chronic obstructive pulmonary disease, not in exacerbation. 6. Hypothyroidism. Stable. Continue with same management. 7. Chronic pain. Continue p.r.n. medication. 8. Nicotine use. This patient has been highly advised against alcohol and tobacco abuse. We will continue with daily cessation education. Continue with nicotine patch. 9. Essential tremors, mild, mostly upper extremities. 10. Deep vein thrombosis prophylaxis with sequential compression devices. 11. Generalized weakness and physical deconditioning. Hopefully we are going to be able to discharge this patient to a rehab center this week. cc: Bear Reese MD
[2018-05-29] MEDS: SYNTHROID PO SCH ×2 (05:08→06:12)
[2018-05-29] MEDS: TYLENOL PO PRN (05:08)
[2018-05-29] MEDS: ZOLOFT PO SCH (08:08)
[2018-05-29] MEDS: VALIUM PO SCH (08:08)
[2018-05-29] MEDS: NICODERM PATCH TD SCH (08:08)
[2018-05-29] MEDS: MYSOLINE PO SCH (08:08)
[2018-05-29 11:40] VITALS: BP 108/69
--- NOTE | 2018-05-29 12:10 | DISCHARGE SUMMARY ---
ADMISSION DATE: 05/23/2018 DISCHARGE DATE: 05/29/2018 CONSULTATIONS: None. PERTINENT PROCEDURES: 1. Abdomen and pelvis CT: Advanced diverticulosis coli but no evidence of diverticulitis. Bilateral ovarian cysts; the largest cyst on the left measuring up to 2.[address]: Chronic appearing white matter changes. No definite acute intracranial pathology. DISCHARGE DIAGNOSES: 1. Encephalopathy, likely metabolic, resolved. 2. Rhabdomyolysis, resolved. BUN, creatinine, and CK level are all normal. 3. Transaminitis, likely related to dehydration, improved. Hepatitis panel was negative. 4. Dehydration, resolved. 5. Chronic obstructive pulmonary disease without exacerbation. 6. Hypothyroidism, stable. 7. Chronic pain, continue p.r.n.'s. 8. Nicotine use. Patient has been highly advised against alcohol and tobacco abuse daily. 9. Essential tremors, mild, mostly upper extremities. 10. Generalized weakness and physical deconditioning. Patient has been working with physical therapy and will be discharged to rehab. HOSPITAL COURSE: Ms. Washington is a 67-year-old female who carries a past medical history of COPD, nicotine dependence, chronic pain, anxiety, tremor, hyperlipidemia, and hypothyroidism, who presented with an abrupt onset of weakness. The patient had slipped out of the bed onto the floor, where she had been for quite some time before she was found by her family. Since that time she has been progressively weak and unable to get up and walk, eat, or drink. No fever, cough, or sputum production. She was brought to the ED for evaluation. Her chemistry was noted to show rhabdomyolysis and transaminitis. Abdominal and pelvis CT did not show anything acute. She was admitted to the hospital and aggressively hydrated. All of her symptoms have improved with hydration. She has been working with physical therapy. Their recommendation is rehab. She will be discharged there today. VITAL SIGNS: At time of discharge, temperature is 98.1 degrees, heart rate 101 , respirations 20, blood pressure 107/60, O2 is 96% on 4 L nasal cannula. DISCHARGE DIET: Healthy heart with Ensure with every meal. DISCHARGE MEDICATIONS: 1. Atorvastatin calcium 20 mg p.o. daily. 2. Gabapentin 300 mg p.o. daily. 3. Synthroid 100 mcg p.o. daily. 4. Prednisone 5 mg p.o. b.i.d. 5. Zoloft 50 mg p.o. at bedtime. 6. Ventolin inhaler 2 puffs inhaled q.6 hours p.r.n. 7. Diazepam 5 mg p.o. b.i.d. 8. Primidone 100 mg p.o. b.i.d. 9. Spiriva 4 g inhaled b.i.d. 10. Ultram 50 mg p.o. b.i.d. p.r.n. FOLLOW UP: Ms. Washington is being discharged to rehab at [facility] where she will continue working with physical therapy on her generalized weakness and deconditioning. She is to take all medications as prescribed. She can return to the ED or call 911 for any worsening of symptoms. Discharge time: 35 minutes Dictated by ZAY Aguero for Bear Reese MD cc: MD Arya Stearns MD MTDJadyn
== END 2018-05-29 14:39 | DRG 682 ==
LOC: ED 11:27 → 4N 18:24 → SUATTDRO 18:24 → 4N 05-25 11:08
PROVIDERS: ATTEND Internal Medicine
CPT/HCPCS: 70450; 71010; 71045; 74177; 80048; 80053; 80074; 80101; 80301; 80307; 80320; 80324; 80329; 80345; 80346; 80353; 80358; 80361; 80365; 81001; 82003; 82055; 82140; 82306; 82550; 82553; 82607; 82746; 82948; 83690; 83735; 83880; 83992; 84134; 84439; 84443; 84484; 85025; 85610; 85730; 87088; 93005; 93010; 94640; 97162; 97530; 99285; A9270; G0431; G0434; G0479; G0480; G6039; G6040; J1630; J7030; Q9966; Q9967; XXXXX

== ENCOUNTER 2019-04-10 11:11 | Inpatient (IN) ==
--- NOTE | 2019-04-10 11:51 | PROVIDER DOCUMENTATION ---
HPI-Screening - General Chief Complaint: Weakness Stated Complaint: WEAKNESS Time Seen by Provider: 04/10/19 11:49 Source: patient, family Allergies/Adverse Reactions: Allergies Allergy/AdvReac Type Severity Reaction Status Date / Time No Known Allergies Allergy Verified 05/23/18 16:16 Home Medications: Home Medication List Medication Instructions Recorded Confirmed Last Taken Type Atorvastatin Calcium 20 mg PO DAILY 05/23/18 05/23/18 Unknown History Gabapentin 300 mg PO DAILY 05/23/18 05/23/18 Unknown History Levothyroxine [Synthroid] 1 tab PO DAILY 05/23/18 05/23/18 Unknown History Prednisone 5 mg PO BID 05/23/18 05/23/18 Unknown History Albuterol Sulfate Inhaler 2 puff INH Q6H PRN PRN #1 inhaler 05/29/18 Unknown Rx [Ventolin Hfa] Diazepam 5 mg PO BID #60 tab 05/29/18 Unknown Rx Primidone 100 mg PO BID #60 tab 05/29/18 Unknown Rx Sertraline HCl 50 mg PO QHS #30 tab 05/29/18 Unknown Rx Tiotropium [place] [Spiriva 4 gm IH BID #1 mist.inhal 05/29/18 Unknown Rx Respimat] Tramadol [Ultram] 50 mg PO BID PRN PRN #20 tab 05/29/18 Unknown Rx Patient arrived via EMS?: No HPI: Pt. is 68 yof that presents with c/o weakness with increases swelling in her feet. Pt. family reports she can no longer get up and ambulate and her PCP told her to come to the ED. Physical Exam-Screening - CONSTITUTIONAL General Appearance: alert, moderate distress, thin. negative: anxious, obtunded, combative - RESPIRATORY Respiratory: decreased breath sounds. negative: crackles, rales, rhonchi, stridor, wheezing - SKIN Integumentary: pallor. negative: cyanosis, erythema, mottled, warm - PSYCHIATRIC Psych/Mental Status: oriented x 3. negative: anxious, paranoid, tearful Screening Depart - Departure ED Screening Disposition: Continued in ED for Treatment Date of Disposition Decision: 04/10/19 Time of Disposition Decision: 11:50 DIAGNOSIS: Weakness Disposition: STILL A PATIENT 30 Certified Medical Emergency: Emergent Condition: Stable Referrals and Follow-Ups: Crampsey,Stevan T., ESE TEACHER [Primary Care Provider] - Attestation - Physician/ TALITA Attestation Patient care was provided by Advanced Practice Provider:: Yes Advanced Practice Provider:: Hardy Arita Advanced Practice Provider documentation review:: The Mid-level provider documentation, treatment plan and medical decision making was reviewed by the physician who agrees with all treatment and medical decision making by the MLP. The physician spent face to face time with patient:: No Advanced Practice Provider documentation review:: Supervising physician onsite and consulted in the evaluation and care of this patient. The physician did not have a face to face encounter with the patient.
[2019-04-10 12:18] LABS: BASO# 0.03 X1000 (0.0-0.2); BASO% 0.4 % (0.0-0.8); EOS# 0.28 X1000 (0.0-0.7); EOS% 3.3 % (0.0-10.0); HEMATOCRIT 42.8 % (37.0-47.0); HEMOGLOBIN 12.7 g/dL (12.0-16.0); IMM GRAN# 0.02 X1000 (0.0-0.04); IMM GRAN% 0.2 % (0.0-0.5); LYMPH# 2.45 X1000 (1.2-3.4); LYMPH% 28.9 % (20.5-51.1); MCH 26.3 PG (27-31); MCHC 29.7 g/dL (33-37); MCV 88.6 FL (81-99); MONO# 0.81 X1000 (0.11-0.59); MONO% 9.5 % (1.7-9.3); MPV 10.6 FL (7.4-10.4); NEUT% 57.7 % (42.2-75.2); PLT 349 X1000 (130-400); RBC 4.83 XMIL (4.2-5.4); RDW 17.5 % (11.5-14.5); WBC 8.49 X1000 (4.8-10.8)
[2019-04-10 12:34] LABS: AGAP 13; ALB/GLOB RATIO 1.2; ALBUMIN 3.9 g/dL (3.5-5.0); ALKALINE PHOSPHATASE 137 U/L (32-104); BUN 10 mg/dL (8-22); CALCIUM 9.4 mg/dL (8.8-10.2); CHLORIDE 103 mmol/L (98-107); CK PROFILE 47 U/L (24-173); COSMO 283; CREATININE 0.7 mg/dL (0.5-0.9); ESTIMATED GFR > 60; GLUCOSE 80 mg/dL (70-104); GOT 23 U/L (10-30); GPT 20 U/L (10-36); POTASSIUM 4.1 mmol/L (3.5-5.1); SODIUM 143 mmol/L (136-145); TCO2 27 mmol/L (25-35); TOTAL BILIRUBIN 0.39 mg/dL (0.20-1.00); TOTAL PROTEIN 7.1 g/dL (6.3-8.3)
--- NOTE | 2019-04-10 12:43 | Diag Imaging Result Doc PS360 ---
EXAM: CHEST-2 VIEWS 04/10/2019 HISTORY: weakness TECHNIQUE: PA and lateral chest COMMENT: There is COPD. There is osteoporosis and there has been kyphoplasty in the lower thoracic spine. There has been no significant change since 05/23/2018. IMPRESSION: Stable chest. Electronically signed by Jassi Grace 04/10/2019 12:41 PM
--- NOTE | 2019-04-10 13:13 | EKG Report ---
Test Performed on : 04/10/2019 12:02:22 PM Test Reason : weakness Blood Pressure : / mmHG Vent. Rate : 135 BPM Atrial Rate : 394 BPM P-R Int : 000 ms QRS Dur : 050 ms QT Int : 332 ms P-R-T Axes : 000 009 143 degrees QTc Int : 498 ms Undetermined rhythm Low voltage QRS Cannot rule out Anterior infarct , age undetermined ST & T wave abnormality, consider inferolateral ischemia Abnormal ECG When compared with ECG of 24-MAY-2018 06:58, Current undetermined rhythm precludes rhythm comparison, needs review Nonspecific T wave abnormality now evident in Anterolateral leads Unconfirmed Result
--- NOTE | 2019-04-10 14:35 | PROVIDER DOCUMENTATION ---
HPI-General Adult - General Chief Complaint: Weakness Stated Complaint: WEAKNESS Time Seen by Provider: 04/10/19 11:49 Source: patient, family Allergies/Adverse Reactions: Patient Allergies Allergy/AdvReac Type Severity Reaction Status Date / Time No Known Allergies Allergy Verified 05/23/18 16:16 Home Medications: Home Medication List Medication Instructions Recorded Confirmed Last Taken Type Atorvastatin Calcium 20 mg PO QHS 05/23/18 04/10/19 Unknown History Gabapentin 300 mg PO DAILY 05/23/18 04/10/19 Unknown History Levothyroxine [Synthroid] 1 tab PO DAILY 05/23/18 04/10/19 Unknown History Diazepam 5 mg PO BID #60 tab 05/29/18 04/10/19 Unknown Rx Primidone 100 mg PO BID #60 tab 05/29/18 04/10/19 Unknown Rx Sertraline HCl 50 mg PO QHS #30 tab 05/29/18 04/10/19 Unknown Rx Alendronate [Fosamax] 1 tab PO DAILY 04/10/19 04/10/19 Unknown History Ferrous Sulfate [Ferosul] 1 tab PO DAILY 04/10/19 04/10/19 Unknown History - History of Present Illness -Gen Adult Nature of Presenting Problems: Pt. is 68 yof that presents with c/o weakness that is generalized. Pt. reports she cannot walk to the bathroom and family reports she isn't eating. She denies any other complaints. Location of Pain/Injury: reports: generalized. denies: none, head, face, mouth, neck, chest, upper extremity, hand(s), abdomen, back, pelvis, genitalia, lower extremity, feet, upper body, lower body, other Pain Radiation: reports: no radiation. denies: arm(s), back, buttocks, chest, epigastric, feet, groin, jaw, flank (L), legs (lower), LLQ, LUQ, neck, periumbi lical, flank (R), RLQ, RUQ, shoulder(s), scapula, scrotal, sternal notch, suprapubic, legs (upper), urethral, vaginal, other Quality of Pain: reports: none. denies: cramping, pressure, tightness Severity: reports: mild. denies: moderate, severe Onset/Duration: reports: unsure, gradual Timing: reports: still present. denies: improving, intermittent, getting worse Context/Activities at Onset: reports: none. denies: light activity, moderate activity, vigorous activity, recent emotional stress, recent physical stress, recent trauma history, possible bad food, cold exposure, eating, out of country travel, rest, sleep, sexual activity, other Modifying Factors: improves with: nothing Associated Symptoms: reports: weakness. denies: denies symptoms, anxiety, arm pain, back/neck pain, chest pain, constipation, cough, diaphoresis, diarrhea, dizziness, EENT symptoms, fatigue, fever/chills, genitourinary problems, headaches, heartburn, joint pain, loss of appetite, malaise, muscle aches, sinus congestion/drainage, nausea, rash, seizure, shortness of breath, sensory/motor loss, pain with inspiration, swelling/mass in abdomen, syncope, vomiting, trouble walking, other Similar Symptoms Previously?: Yes Recently seen or treated by another doctor?: No Review of Systems - Adult - REVIEW OF SYSTEMS - ADULT Constitutional: reports: no symptoms reported Eyes: reports: no symptoms reported Ears, Nose, Mouth & Throat: reports: no symptoms reported Cardiovascular: reports: no symptoms reported Respiratory: reports: no symptoms reported Gastrointestinal: reports: no symptoms reported Genitourinary: reports: no symptoms reported Musculoskeletal: reports: see HPI, muscle weakness. denies: back pain, joint pain, neck pain Integumentary: reports: no symptoms reported Neurological: reports: no symptoms reported Psychiatric: reports: no symptoms reported Past History - Adult - PAST MEDICAL HISTORY-ADULT Review of Records: reports: Old Records Reviewed, Nursing Assessment Review, Medications Reviewed, Social history reviewed & non-contributory. Major Childhood Illnesses: reports: denies history Cardiovascular: reports: HTN, hyperlipidemia Respiratory: reports: COPD Gastrointestinal: reports: denies history Obstetrical/Gynecological: reports: denies history Genitourinary: reports: denies history Musculoskeletal: reports: denies history Neurological: reports: denies history Psychiatric: reports: denies history Endocrine/Immune: reports: thyroid disorder Other Conditions: reports: denies history - PRIOR SURGERIES/PROCEDURES Surgical/Procedure History: reports: back/neck - IMMUNIZATION STATUS Childhood Immunizations: See Nurse Assessment Flu Vaccine: See Nurse Assessment - FAMILY HISTORY Family History: reviewed, not pertinent - SOCIAL HISTORY Smoking: cigarettes, greater than 1 pack/day Provider spent 3-5 mins advising pt. on dangers of tobacco.: Discussed manners to quit use, and f/u contacts for add'l counseling. Physical Exam-General - PHYSICAL EXAM-ADULT Initial Vital Signs Reviewed: Yes - CONSTITUTIONAL General Appearance: alert, mild distress, thin, slow to respond. negative: anxious, obtunded, combative - EYES Eyes: PERRL/EOMI, pink conjunctivae - HEAD, EARS, NOSE, MOUTH & THROAT HENMT: normocephalic/atraumatic, moist mucous membranes - NECK Neck: non-tender, full range of motion, supple, normal inspection - RESPIRATORY Respiratory: lungs clear, normal breath sounds. negative: rales, rhonchi, stridor, wheezing - CARDIOVASCULAR Cardiovascular: normal peripheral pulses, regular rate, rhythm, no edema - GASTROINTESTINAL (ABDOMEN) Abdominal Exam: normal bowel sounds, non tender, soft - LYMPHATIC Lymphatic: no adenopathy - MUSCULOSKELETAL Back Exam: normal inspection, no CVA tenderness, no vertebral tenderness Extremity: normal range of motion Peripheral Pulses: radial (R): 2+, radial (L): 2+ - SKIN Integumentary: pallor. negative: cyanosis, jaundice, swelling - NEUROLOGIC Neurologic: motor weakness. negative: grossly normal, aphasia, facial droop, focal weakness - PSYCHIATRIC Psych/Mental Status: normal mood/affect, normal thought content, normal thought process, oriented x 3. negative: anxious, paranoid, tearful Progress - PLAN OF CARE/RESULTS Progress/Plan/Lab Results: Vital Signs - 8 hr 04/10/19 11:42 Temperature 97.5 F L Pulse Rate 89 Respiratory Rate 20 Blood Pressure 94/58 O2 Sat by Pulse Oximetry 96 Laboratory Results - last 24 hr 04/10/19 04/10/19 04/10/19 11:50 11:50 11:50 WBC RBC Hgb Hct MCV MCH MCHC RDW Std Deviation Plt Count MPV Immature Gran % (Auto) Neut % (Auto) Lymph % (Auto) [place] % (Auto) Eos % (Auto) Baso % (Auto) Immature Gran # (Auto) Neut # (Auto) Lymph # (Auto) [place] # (Auto) Eos # (Auto) Baso # (Auto) Sodium 143 Potassium 4.1 Chloride 103 Carbon Dioxide 27 Anion Gap 13 BUN 10 Creatinine 0.7 Estimated GFR/1.73 m2 > 60 BUN/Creatinine Ratio 14 Glucose 80 Calculated Osmolality 283 Calcium 9.4 Total Bilirubin 0.39 AST 23 ALT 20 Alkaline Phosphatase 137 H Creatine Kinase 47 Troponin T < 0.010 [id number]-[id number] Pept 376 H Total Protein 7.1 Albumin 3.9 Globulin 3.2 Albumin/Globulin Ratio 1.2 04/10/19 11:52 WBC 8.49 RBC 4.83 Hgb 12.7 Hct 42.8 MCV 88.6 MCH 26.3 L MCHC 29.7 L RDW Std Deviation 17.5 H Plt Count 349 MPV 10.6 H Immature Gran % (Auto) 0.2 Neut % (Auto) 57.7 Lymph % (Auto) 28.9 [place] % (Auto) 9.5 H Eos % (Auto) 3.3 Baso % (Auto) 0.4 Immature Gran # (Auto) 0.02 Neut # (Auto) 4.90 Lymph # (Auto) 2.45 [place] # (Auto) 0.81 H Eos # (Auto) 0.28 Baso # (Auto) 0.03 Sodium Potassium Chloride Carbon Dioxide Anion Gap BUN Creatinine Estimated GFR/1.73 m2 BUN/Creatinine Ratio Glucose Calculated Osmolality Calcium Total Bilirubin AST ALT Alkaline Phosphatase Creatine Kinase Troponin T [id number] Pept Total Protein Albumin Globulin Albumin/Globulin Ratio Orders Category Date Time Status FSBS [Finger Stick Blood Sugar (ED)] DIRECTED Care 04/10/19 11:48 Active Saline Loc NOW Care 04/10/19 11:47 Active CHEST-2 VIEWS [RAD] Stat Exams 04/10/19 11:[address] HEAD W/O CONTRAST [CT] Stat Exams 04/10/19 14:07 Ordered CBC WITH ELECTRONIC DIFF [HEME] Stat Lab 04/10/19 11:52 Completed CK PROFILE [SP CHEM] Stat Lab 04/10/19 11:50 Completed COMPREHENSIVE METABOLIC PANEL [CHEM] Stat Lab 04/10/19 11:50 Completed PRO B-NATRIURETIC PEPTIDE Stat Lab 04/10/19 11:50 Completed TROPONIN T Stat Lab 04/10/19 11:50 Completed URINALYSIS W/POSS RFLX CULT [URINALYSIS] Stat Lab 04/10/19 11:48 Uncollected EKG [EKG] Stat Ther 04/10/19 11:47 Draft Result Diagrams: 04/10/19 11:52 04/10/19 11:50 - XRAY 1 XRAY Study: Chest ([facility] - [address], [address], [place] [address] [facility] - [address] [place] [address] Department of Imaging Patient: BRITTANY HIDALGODM Date: 04/10/19MR#: [id number] : 1950DM Status: PRE ERAcct#: [id number] Age/Sex: 68/FRoom/Bed: Loc: ED Ordering Physician: Hardy Arita Family Physician: Stevan Olvera Reason for Procedure: weakness Signed EXAM: CHEST-2 VIEWS 04/10/2019 HISTORY: weakness TECHNIQUE: PA and lateral chest COMMENT: There is COPD. There is osteoporosis and there has been kyphoplasty in the lower thoracic spine. There has been no significant change since 05/23/2018. IMPRESSION: Stable chest. Electronically signed by Jassi Grace 04/10/2019 12:41 PM 04/10/19 1241 Interpreting Physician: Jassi Grace MD Dictated Date/Time: 04/10/19 1240 cc: Hardy Arita; Stevan Olvera) XRAY Interpretation: See note - CT/MRI 1 CT Study: Head ([facility] - [address], [address], [place] [address] [facility] - [facility] [place] [address] Department of Imaging Patient: BRITTANY HIDALGODM Date: 04/10/19MR#: [id number] : 1950DM Status: PRE ERAcct#: [id number] Age/Sex: 68/FRoom/Bed: Loc: ED Ordering Physician: Hardy Arita Family Physician: Stevan Olvera Reason for Procedure: weakness Signed CT HEAD W/O CONTRAST - 04/10/2019 INDICATION: weakness COMPARISON: 05/23/2018 FINDINGS: The ventricles and sulci are normal in size and contour. There is stable advanced periventricular cerebral white matter chronic microvascular ischemia. No intracranial mass or hemorrhage. There is mild mastoiditis of the right mastoid air cells. Other sinuses are clear. IMPRESSION: Mild mastoiditis on the right side. Advanced chronic microvascular ischemia. This exam was performed using automated exposure control, adjustment of mA or kV according to patient size, and/or use of iterative reconstruction technique Electronically signed by Riky Faust 04/10/2019 2:44 PM 04/10/19 1444 Interpreting Physician: Riky Faust MD Dictated Date/Time: 04/10/19 1443 cc: Hardy Arita; Stevan Olvera) CT Results: See note - CONSULTS/PCP/HOSPITALIST Notification #1 *Consult/PCP/Hospitalist*: ZAY Palma Time Discussed: 14:20 Reason/Comments: Consult Consult Disposition: other (ZAY Palma called and asks if we can admit his patient for a 3 day admission in order to get the patient into rehab. We will see what test results show.) #2 Consult: Loretta Good Time Discussed: 17:06 Reason/Comments: Admission Consult Disposition: Will see in ED, Admit Departure - Departure Date of Disposition Decision: 04/10/19 Time of Disposition Decision: 16:46 DIAGNOSIS: Weakness, Benign essential tremor, Tobacco use disorder Mastoiditis Qualifiers: Laterality: unspecified laterality Qualified Code(s): H70.90 - Unspecified mastoiditis, unspecified ear Disposition: STILL A PATIENT 30 Certified Medical Emergency: Emergent Condition: Stable Referrals and Follow-Ups: Stevan Olvera CRNP [Primary Care Provider] - - Critical Care Note This patient required my direct & personal management of CC.: No Attestation - Physician/ TALITA Attestation Patient care was provided by Advanced Practice Provider:: Yes Advanced Practice Provider:: Hardy Arita Advanced Practice Provider documentation review:: The Mid-level provider documentation, treatment plan and medical decision making was reviewed by the physician who agrees with all treatment and medical decision making by the MLP. The physician spent face to face time with patient:: No Advanced Practice Provider documentation review:: Supervising physician onsite and consulted in the evaluation and care of this patient. The physician did not have a face to face encounter with the patient.
--- NOTE | 2019-04-10 14:47 | Diag Imaging Result Doc PS360 ---
CT HEAD W/O CONTRAST - 04/10/2019 INDICATION: weakness COMPARISON: 05/23/2018 FINDINGS: The ventricles and sulci are normal in size and contour. There is stable advanced periventricular cerebral white matter chronic microvascular ischemia. No intracranial mass or hemorrhage. There is mild mastoiditis of the right mastoid air cells. Other sinuses are clear. IMPRESSION: Mild mastoiditis on the right side. Advanced chronic microvascular ischemia. This exam was performed using automated exposure control, adjustment of mA or kV according to patient size, and/or use of iterative reconstruction technique Electronically signed by Riky Faust 04/10/2019 2:44 PM
[2019-04-10 16:19] LABS: URINE SOURCE CLEAN CATCH
[2019-04-10 16:25] LABS: BILIRUBIN URINE NEGATIVE (NEGATIVE); BLOOD URINE NEGATIVE (NEGATIVE); COLOR YELLOW; GLUCOSE URINE NEGATIVE (NEGATIVE); KETONE URINE NEGATIVE (NEGATIVE); LEUKOCYTES URINE TRACE (NEGATIVE); NITRITE URINE NEGATIVE (NEGATIVE); PROTEIN URINE TRACE mg/dL (NEGATIVE); SP GRAVITY URINE 1.024; TURBIDITY URINE HAZY (CLEAR); UROBILINOGEN URINE 2 mg/dL (NORMAL)
[2019-04-10 16:27] LABS: UR EPITHELIAL CELLS >10 /HPF (<10); URINE BACTERIA 1+ /HPF; URINE RBC <10 /HPF (<10); URINE WBC <10 /HPF (<10)
[2019-04-10 16:37] LABS: URINE CRYSTALS NONE SEEN
[2019-04-10] MEDS ORDERED: ROCEPHIN 1 GM in NS 50 ML IV ONE (16:45)
--- NOTE | 2019-04-10 18:34 | HISTORY AND PHYSICAL ---
HISTORY OF PRESENT ILLNESS: This is a 68-year-old who her granddaughter lives with her in an apartment and is the sole caregiver. In particular the last month she has become weaker and weaker. She complained of pain in her left leg the last 2 weeks. It is difficult for her to get up without assistance and it had come to the point where she can't get up out of bed and she has no one to care for her for over 12 hours in the day. She is complaining of generalized pain, mainly in the left knee, but all of her joints and increasing weakness. PAST MEDICAL HISTORY: 1. She has had encephalopathy before, metabolic, which resolved. 2. Rhabdomyolysis in the past, I think from a fall. 3. Transaminitis from dehydration. 4. COPD. 5. Hypothyroidism. 6. Chronic pain syndrome. 7. Nicotine use. 8. Essential tremors. 9. Generalized weakness and deconditioning. I do not know of any surgical history. REVIEW OF SYSTEMS: The main component is that she is much weaker and complaining of more pain, especially in her left knee, but her feet and lower extremities hurt, her hips, her lower back. Respiratory: She is not complaining of shortness of breath. Cardiovascular: No chest pain or tachy palpitations reported. No pleuritic pain. Endocrinologic/hemologic: No significant history other than hypothyroidism. Musculoskeletal: Complains of generalized lower back pain, both hips, her knees. Neurologic: Nothing really focal other than the left knee seems to bother her more than the other joints. MEDICATIONS: Looking at her medications from last discharge, she was on atorvastatin, gabapentin, Synthroid, prednisone, Zoloft, Ventolin, diazepam, primidone, Spiriva, and she was taking some Ultram. EXAM TODAY IN THE EMERGENCY ROOM: General: She is awake, alert, pleasant, oriented x3. Vital signs: Temp 97.5 degrees, pulse 80, respirations 23, blood pressure 135/81. HEENT: Pupils are equal and round. Lungs: Clear in all lung woodruff. Cardiovascular: Regular rate without murmur or S3. Abdomen: Soft. Skin: Warm and dry. Extremities: Left knee with some mild effusion. Very tender to touch anterior. Her feet with the toenails have grown long, thick and onychomycosis appreciated. Fingernails, I did not appreciate clubbing. Height and weight: Weight 130 pounds. Height 5 feet 4 inches. LABORATORIES: White blood cell count 8490, hematocrit 42, platelet count 349,000. Sodium 143, potassium 4.1, chloride 103, BUN 10, creatinine 0.7, calcium is 9.4, AST 23, ALT is 20, alkaline phosphatase 137. Urinalysis unremarkable. IMAGING: Chest x-ray: COPD, osteoporosis, severe kyphosis, lower thoracic spine. No significant change since 05/23/2018. Head CT: Mild mastoiditis on the right side. On exam I could not appreciate tenderness in the posterior auricular area or the external. The pinna was not tender, so no sign of tenderness in her maxillary or sphenoid sinuses either. ASSESSMENT AND PLAN: 1. Generalized weakness, which is profound and is accelerated. She is at high risk to fall. She cannot get out of the bed. There are no caretakers at her house and concern that this is progressing. I think we need to look for something that is reversible. We will check her thyroid. We will check a.m. cortisol. Follow her electrolytes B12 and folate. We will get Physical Therapy to evaluate as well as Occupational Therapy. 2. She has underlying chronic obstructive pulmonary disease. 3. She has a history of primary hypothyroidism. We will recheck her T4, TSH. 4. Her left knee is swollen and irritated. We will make sure we check a uric acid level. I think we will check a C-reactive protein and sedimentation rate as well and she has a normal hematocrit. Electrolytes look unremarkable. Renal function looks good. cc: Juan J Good MD
[2019-04-10] MEDS ORDERED: ZOFRAN IV PRN (21:26)
[2019-04-10 22:23] LABS: FREE T4 0.93 ng/dL (0.93-1.70)
[2019-04-10 22:31] LABS: TSH 24.12 uIUmL (0.27-4.20)
[2019-04-10] MEDS: NS 1,000 ML IV SCH (22:40)
[2019-04-10] MEDS: MYSOLINE PO SCH (22:44)
[2019-04-10] MEDS: VALIUM PO SCH (22:44)
[2019-04-10] MEDS: LIPITOR PO SCH (22:44)
[2019-04-10] MEDS: ZOLOFT PO SCH (22:45)
[2019-04-11] MEDS: SYNTHROID PO SCH (06:56)
[2019-04-11] MEDS: PATIENT'S OWN MED PO SCH (06:58)
[2019-04-11 07:49] LABS: BASO# 0.03 X1000 (0.0-0.2); BASO% 0.5 % (0.0-0.8); EOS# 0.31 X1000 (0.0-0.7); EOS% 4.8 % (0.0-10.0); HEMATOCRIT 40.1 % (37.0-47.0); HEMOGLOBIN 12.1 g/dL (12.0-16.0); LYMPH# 1.78 X1000 (1.2-3.4); LYMPH% 27.5 % (20.5-51.1); MCH 26.4 PG (27-31); MCHC 30.2 g/dL (33-37); MCV 87.4 FL (81-99); MONO# 0.56 X1000 (0.11-0.59); MONO% 8.6 % (1.7-9.3); MPV 10.4 FL (7.4-10.4); NEUT% 58.6 % (42.2-75.2); PLT 292 X1000 (130-400); RBC 4.59 XMIL (4.2-5.4); RDW 17.1 % (11.5-14.5); WBC 6.48 X1000 (4.8-10.8)
[2019-04-11 08:09] LABS: AGAP 9; BUN 8 mg/dL (8-22); CALCIUM 9.1 mg/dL (8.8-10.2); CHLORIDE 105 mmol/L (98-107); COSMO 276; CREATININE 0.7 mg/dL (0.5-0.9); ESTIMATED GFR > 60; GLUCOSE 100 mg/dL (70-104); POTASSIUM 3.9 mmol/L (3.5-5.1); SODIUM 139 mmol/L (136-145); TCO2 25 mmol/L (25-35)
[2019-04-11] MEDS: VALIUM PO SCH ×2 (08:45→21:47)
[2019-04-11] MEDS: NEURONTIN PO SCH (08:45)
[2019-04-11] MEDS: MYSOLINE PO SCH ×2 (08:45→21:40)
[2019-04-11] MEDS: FERROUS SULFATE PO SCH (08:45)
[2019-04-11] MEDS: NS 1,000 ML IV SCH (14:34)
[2019-04-11] MEDS: TYLENOL PO PRN ×2 (14:34→14:41)
[2019-04-11] MEDS: LIPITOR PO SCH (21:40)
[2019-04-11] MEDS: ZOLOFT PO SCH (21:40)
[2019-04-12] MEDS: TYLENOL PO PRN (02:58)
[2019-04-12] MEDS: NS 1,000 ML IV SCH ×2 (05:50→17:08)
[2019-04-12] MEDS: PATIENT'S OWN MED PO SCH (06:26)
[2019-04-12] MEDS: SYNTHROID PO SCH (06:26)
[2019-04-12] MEDS: VALIUM PO SCH (10:24)
[2019-04-12] MEDS: MYSOLINE PO SCH ×2 (10:25→22:40)
[2019-04-12] MEDS: NEURONTIN PO SCH (10:25)
[2019-04-12] MEDS: FERROUS SULFATE PO SCH (10:25)
--- NOTE | 2019-04-12 10:34 | PROGRESS NOTE ---
DATE: 04/12/2019 SUBJECTIVE: This is a 68-year-old. She feels better, sitting up in a lounge chair, feels a little stronger. She is eating pretty good. Still requires quite a bit of assistance. OBJECTIVE: Vital Signs: Remains afebrile, temperature is 98.9 degrees, pulse 82, respirations 12, blood pressure 106/67. HEENT: Pupils are equal and round. Lungs: Clear in all lung woodruff. Cardiovascular: Regular rhythm and rate without murmur or S3. Good urine output, which was 1600 mL. ASSESSMENT AND PLAN: 1. Generalized weakness, profound, accelerated. Continue physical therapy. I think we are seeing some improvement. 2. Underlying chronic obstructive pulmonary disease. The gas and air exchange I think is good. Will see if she requires oxygen. 3. Primary hypothyroidism. Continue her Synthroid. 4. Left knee swollen and irritated. This seems to be a little better. REVIEW OF ORDERS: Continue current orders. She is on iron 325 mg a day, Zoloft 50 mg a day, Valium 5 mg twice a day, Lipitor 20 mg at bedtime, normal saline at 75 mL an hour, and primidone 100 mg b.i.d. Her recent lab shows hematocrit 40, hemoglobin 12. Sodium 139, potassium 3.9, chloride 105, BUN 8, creatinine 0.7. Continue physical therapy. We are trying to find physical rehab opportunity for her. I suspect she will be here this weekend. cc: Juan J Good MD
[2019-04-12] MEDS: LIPITOR PO SCH (22:40)
[2019-04-12] MEDS: ZOLOFT PO SCH (22:43)
[2019-04-13] MEDS: VALIUM PO SCH ×3 (01:03→20:24)
[2019-04-13] MEDS: PATIENT'S OWN MED PO SCH (06:09)
[2019-04-13] MEDS: SYNTHROID PO SCH (06:10)
[2019-04-13] MEDS: TYLENOL PO PRN (07:20)
[2019-04-13] MEDS: FERROUS SULFATE PO SCH (10:18)
[2019-04-13] MEDS: NEURONTIN PO SCH (10:18)
[2019-04-13] MEDS: MYSOLINE PO SCH ×2 (10:18→20:24)
--- NOTE | 2019-04-13 13:00 | PROGRESS NOTE ---
DATE: 04/13/2019 SUBJECTIVE: Ms. Washington is feeling better. She was eating and she ate most of her lunch. She remains afebrile. She feels like she is a little bit stronger. OBJECTIVE: Temperature 99.3 degrees, pulse 93, respirations 16, and blood pressure 116/83. Pupils are equal and round. Lungs are clear in all lung woodruff. Cardiovascular exam regular rhythm and rate without murmur or S3. Urine output is 3200 mL. ASSESSMENT AND PLAN: 1. Generalized weakness. Continue physical therapy. Would like to get her to rehab the first of the week. 2. Underlying chronic obstructive pulmonary disease. We are seeing if she will require oxygen. 3. Pulmonary hypothyroidism. Continue Synthroid. 4. Left knee swollen and irritated. This is better. Her effusion has gone down. Continue current medications. She has hematocrit 40 and hemoglobin of 12. Electrolytes unremarkable. Good renal function. TSH was 24 with a T4 0.93. Cortisol was 10. It looks like normal value. cc: Juan J Good MD
[2019-04-13] MEDS: NS 1,000 ML IV SCH ×2 (18:06→18:07)
[2019-04-13] MEDS: LIPITOR PO SCH (20:24)
[2019-04-13] MEDS: ZOLOFT PO SCH (20:24)
[2019-04-14] MEDS: TYLENOL PO PRN ×2 (01:28→20:08)
[2019-04-14] MEDS: NS 1,000 ML IV SCH ×2 (05:37→18:16)
[2019-04-14] MEDS: SYNTHROID PO SCH ×2 (05:37→06:18)
[2019-04-14] MEDS: PATIENT'S OWN MED PO SCH (06:18)
[2019-04-14] MEDS: MYSOLINE PO SCH ×2 (08:29→20:08)
[2019-04-14] MEDS: VALIUM PO SCH ×2 (08:29→20:04)
[2019-04-14] MEDS: NEURONTIN PO SCH (08:29)
[2019-04-14] MEDS: FERROUS SULFATE PO SCH (08:31)
--- NOTE | 2019-04-14 09:41 | PROGRESS NOTE ---
DATE: 04/14/2019 SUBJECTIVE: Ms. Washington just ate all of her breakfast. Good appetite. Left knee still gives her some discomfort and tender to touch. Decreased effusion in the left knee. Her tremor is still there; essential tremor seems to be a little stronger. Hoping to go to rehab on Tuesday. OBJECTIVE: Vital Signs: Remains afebrile. Temperature 98.2 degrees, pulse 85, respirations 18, blood pressure 120/78. Eyes: Pupils are equal and round. Lungs: Clear in all lung woodruff. Cardiovascular: Regular rhythm and rate without murmur or S3. Abdomen: Soft. Skin: Warm and dry. : Urine output is 2600 mL. ASSESSMENT AND PLAN: 1. Generalized weakness. Continue physical therapy. Hopefully to rehabilitation on Tuesday or Tuesday. 2. Underlying chronic obstructive pulmonary disease. She was not on home oxygen, but I think she may require oxygen. We will have Respiratory check that and see if that will benefit. 3. Primary hypothyroidism on Synthroid, appears euthyroid. 4. Left knee with some arthritis. REVIEW OF HER ORDERS: She is getting Lipitor 20 mg at bedtime, Zoloft 50 mg at bedtime, Valium 5 mg twice a day, ferrous sulfate 325 mg a day, Neurontin 300 mg a day, Synthroid 100 mcg daily, normal saline at 75 mL an hour and Mysoline 100 mg p.o. b.i.d. cc: Juan J Good MD
[2019-04-14] MEDS: MOBIC PO SCH (14:23)
[2019-04-14] MEDS: ZOLOFT PO SCH (20:04)
[2019-04-14] MEDS: LIPITOR PO SCH (20:04)
[2019-04-15] MEDS: SYNTHROID PO SCH ×2 (05:53→06:28)
[2019-04-15] MEDS: TYLENOL PO PRN (05:53)
[2019-04-15] MEDS: NS 1,000 ML IV SCH ×2 (05:57→19:30)
[2019-04-15] MEDS: PATIENT'S OWN MED PO SCH (06:28)
[2019-04-15] MEDS ORDERED: DULCOLAX PR PRN (09:06)
[2019-04-15] MEDS ORDERED: MILK OF MAGNESIA PO ONE (09:06)
--- NOTE | 2019-04-15 09:34 | PROGRESS NOTE ---
DATE: 04/15/2019 SUBJECTIVE: Ms. Washington says she is feeling better. She has not had a bowel movement in a couple of days though so I am going to give her some milk of magnesia this morning, Dulcolax suppository to see if that will help. OBJECTIVE: On examination, temperature is 98.3 degrees, pulse 80, respirations 19, blood pressure 112/61. Pupils are equal and round. Lungs are clear in all lung woodruff. Cardiovascular Examination: Regular rhythm and rate without murmur or S3. Abdomen is soft. Skin is warm and dry. Urine output is 1000 mL. ASSESSMENT AND PLAN: 1. Generalized weakness. Continue physical therapy. She is getting a little stronger. Hopefully can go to rehab tomorrow. 2. Underlying chronic obstructive pulmonary disease. Air and gas exchange seems to be good. 3. Hypothyroidism, on Synthroid. Appears euthyroid. 4. Left knee with some arthritis. I think that is improved. 5. Constipation. Try milk of magnesia. Her lab reviewed from the looks good. I may repeat some more lab tomorrow. Hopefully to rehab tomorrow. cc: Juan J Good MD
[2019-04-15] MEDS: NEURONTIN PO SCH (09:54)
[2019-04-15] MEDS: VALIUM PO SCH ×2 (09:54→20:19)
[2019-04-15] MEDS: MOBIC PO SCH (09:54)
[2019-04-15] MEDS: FERROUS SULFATE PO SCH (09:54)
[2019-04-15] MEDS: MYSOLINE PO SCH ×2 (09:58→20:19)
[2019-04-15] MEDS: LIPITOR PO SCH (20:19)
[2019-04-15] MEDS: ZOLOFT PO SCH (20:19)
[2019-04-16] MEDS: TYLENOL PO PRN (04:28)
[2019-04-16] MEDS: PATIENT'S OWN MED PO SCH (06:02)
[2019-04-16] MEDS ORDERED: SYNTHROID PO SCH (07:00)
[2019-04-16 07:57] LABS: AGAP 11; BUN 12 mg/dL (8-22); CALCIUM 9.3 mg/dL (8.8-10.2); CHLORIDE 106 mmol/L (98-107); COSMO 282; CREATININE 0.7 mg/dL (0.5-0.9); ESTIMATED GFR > 60; GLUCOSE 87 mg/dL (70-104); MAGNESIUM 1.9 mg/dL (1.5-2.7); POTASSIUM 4.5 mmol/L (3.5-5.1); SODIUM 142 mmol/L (136-145); TCO2 25 mmol/L (25-35)
[2019-04-16] MEDS: NS 1,000 ML IV SCH (08:44)
[2019-04-16] MEDS: NEURONTIN PO SCH (08:44)
[2019-04-16] MEDS: FERROUS SULFATE PO SCH (08:45)
[2019-04-16] MEDS: VALIUM PO SCH (08:45)
[2019-04-16] MEDS: MOBIC PO SCH (08:45)
[2019-04-16] MEDS: MYSOLINE PO SCH (08:45)
--- NOTE | 2019-04-16 09:35 | Diag Imaging Result Doc PS360 ---
EXAM: CHEST-2 VIEWS 04/16/2019 HISTORY: copd TECHNIQUE: PA and lateral chest COMMENT: The inspiration is less optimal than on 04/10/2019. There is COPD. There is a granuloma laterally in the right upper lobe which has not changed since 04/10/2019 or 05/23/2018. IMPRESSION: COPD. Electronically signed by Jassi Grace 04/16/2019 9:32 AM
--- NOTE | 2019-04-16 12:56 | DISCHARGE SUMMARY ---
ADMISSION DATE: 04/10/2019 DISCHARGE DATE: 04/16/2019 HISTORY: She is a patient of ZAY Palma. This is a 68-year-old whose granddaughter lives with her in an apartment sole caregiver. She last month became weaker and weaker over the last 4 weeks, and got to the place where she really can't get out of bed and can't walk. Her left leg and her pain in the knee and effusion from chronic degenerative arthritis. She was not eating much and just failure to thrive. PAST MEDICAL HISTORY: 1. She had encephalopathy before, metabolic which resolved. 2. Rhabdomyolysis in the past from a fall. 3. Transaminitis from dehydration in the past. 4. COPD. 5. Hypothyroidism. 6. Chronic pain syndrome. 7. Nicotine use. 8. Essential tremors. 9. General weakness and deconditioning. She has been to rehab in the past. ADMISSION DIAGNOSES: 1. General weakness and failure to thrive. 2. Left knee pain, unable to ambulate. Unable to get 24 hour care. 3. Protein calorie malnutrition, not eating well, poor appetite. 4. Chronic obstructive pulmonary disease exacerbation in the past, but at the present time her COPD, there is no exacerbation but she does have underlying chronic obstructive pulmonary disease. 5. Primary hypothyroidism. HOSPITAL COURSE: The patient had a CT of the head done, mild mastoiditis was suggested, however, no clinical and physical signs to support that so no sign of true infection of the mastoid sinus. She had physical therapy helping her, and she showed improvement. Her appetite seemed to improve. She was eligible to go to rehab. She will let her go home with Tylenol 650 mg p.o. q.6 hours p.r.n. She takes alendronate 10 mg p.o. daily. She takes Lipitor 20 mg at bedtime, and Valium 5 mg b.i.d., which she is taking situationally, but she has been on this for some time for just situational anxiety and depression. Ferrous sulfate 325 mg a day, Neurontin 300 mg a day, Synthroid 125 mcg a day, Mobic 7.5 mg a day. Primidone 100 mg p.o. b.i.d. and Zoloft 50 mg at bedtime. cc: Juan J Good MD
[2019-04-16 15:38] VITALS: BP 109/64
== END 2019-04-16 17:46 | DRG 948 ==
LOC: ED 11:11 → 3N 20:35
PROVIDERS: ATTEND Emergency Medicine